=== PATIENT | male | born 1960 | race Caucasian/White ===

== ENCOUNTER 2018-03-14 08:51 | Outpatient (REF) | payer OTHER, SELFPAY ==
[2018-03-14 22:41] LABS: Anion Gap 6.1 mmol/L (3-11); BUN 17 mg/dL (7-18); CO2 27.9 mmol/L (21.0-32.0); CREATININE 0.96 mg/dL (0.70-1.30); Calcium 8.2 mg/dL (8.5-10.1); Chloride 105 mmol/L (98-107); Cholesterol 134 mg/dL (50-200); Glucose 106 mg/dL (70-100); HDL Cholesterol 66 mg/dL (40-60); LDL CHOLESTEROL 65 mg/dL (<100); Potassium 4.2 mmol/L (3.5-5.1); Sodium 139 mmol/L (136-145); Triglyceride 41 mg/dL (30-150)
[2018-03-16 10:41] LABS: PSA, Screening 2.6 ng/ml (0-3.5)
== END 2018-03-14 08:52 ==
LOC: NCHCN 08:51
PROVIDERS: PCP Urology; Visit Provider Family Medicine
DX: Z00.00 Encounter for general adult medical examination without abnormal findings (principal); Z13.228 Encounter for screening for other metabolic disorders; Z13.220 Encounter for screening for lipoid disorders; Z12.5 Encounter for screening for malignant neoplasm of prostate
CPT/HCPCS: 80048; 80061; 83721; 84153

== ENCOUNTER 2019-04-05 09:50 | Outpatient (REF) | payer OTHER, SELFPAY ==
[2019-04-05 21:27] LABS: Hemoglobin A1C 5.6 % (4.5-6.2)
[2019-04-05 21:35] LABS: ALT 28 U/L (16-63); AST 11 U/L (15-37); Albumin 4.6 g/dL (3.4-5.0); Alkaline Phosphatase 44 U/L (46-116); Anion Gap 10.1 mmol/L (3-11); BUN 14 mg/dL (7-18); Bilirubin, Total 1.2 mg/dL (0.2-1.0); CO2 27.9 mmol/L (21.0-32.0); CREATININE 0.74 mg/dL (0.70-1.30); Calcium 8.9 mg/dL (8.5-10.1); Calculated LDL 68 mg/dL; Chloride 104 mmol/L (98-107); Cholesterol 147 mg/dL (50-200); Glucose 107 mg/dL (70-100); HDL Cholesterol 73 mg/dL (40-60); Potassium 4.2 mmol/L (3.5-5.1); Sodium 142 mmol/L (136-145); Triglyceride 32 mg/dL (30-150)
== END 2019-04-05 10:10 ==
LOC: NCHCN 09:50
PROVIDERS: PCP Urology; Visit Provider Family Medicine
DX: Z00.00 Encounter for general adult medical examination without abnormal findings (principal); R73.01 Impaired fasting glucose; F10.19 Alcohol abuse with unspecified alcohol-induced disorder; Z12.5 Encounter for screening for malignant neoplasm of prostate
CPT/HCPCS: 80053; 80061; 84153; 83036

== ENCOUNTER 2019-04-26 08:58 | Outpatient (REF) | payer OTHER, SELFPAY ==
[2019-04-29 11:34] LABS: PSA, Screening 3.7 ng/ml (0-3.5)
== END 2019-04-26 09:18 ==
LOC: NCHCN 08:58
PROVIDERS: PCP Urology; Visit Provider Family Medicine
DX: R97.20 Elevated prostate specific antigen [PSA] (principal); Z12.5 Encounter for screening for malignant neoplasm of prostate
CPT/HCPCS: 84153

== ENCOUNTER 2020-04-10 09:29 | Outpatient (REF) | payer OTHER, SELFPAY ==
[2020-04-10 22:01] LABS: ALT 26 U/L (16-63); AST 13 U/L (15-37); Albumin 4.1 g/dL (3.4-5.0); Alkaline Phosphatase 34 U/L (46-116); BUN 16 mg/dL (7-18); Bilirubin, Total 0.9 mg/dL (0.2-1.0); CREATININE 0.85 mg/dL (0.70-1.30); Calcium 8.7 mg/dL (8.5-10.1); Chloride 104 mmol/L (98-107); Glucose 99 mg/dL (74-106); Potassium 4.1 mmol/L (3.5-5.1); Sodium 140 mmol/L (136-145); Total Protein 6.4 g/dL (6.4-8.2)
[2020-04-10 22:11] LABS: Hemoglobin A1C 5.4 % (<5.7)
[2020-04-10 22:16] LABS: Calculated LDL 75 mg/dL (<100); Cholesterol 149 mg/dL (<200); HDL Cholesterol 69 mg/dL (40-60); Triglyceride 27 mg/dL (<150)
== END 2020-04-10 09:49 ==
LOC: NCHCN 09:29
PROVIDERS: PCP Urology; Visit Provider Family Medicine
DX: Z00.00 Encounter for general adult medical examination without abnormal findings (principal); R73.03 Prediabetes; R17 Unspecified jaundice
CPT/HCPCS: 80053; 80061; 83036

== ENCOUNTER 2021-04-16 15:09 | Outpatient (REF) | payer OTHER, SELFPAY ==
[2021-04-16 18:01] LABS: Hemoglobin A1C 5.5 % (<5.7)
[2021-04-16 18:02] LABS: Anion Gap 7.2 mmol/L (3-11); BUN 16 mg/dL (7-18); CO2 28.8 mmol/L (21.0-32.0); CREATININE 0.8 mg/dL (0.70-1.30); Calcium 8.7 mg/dL (8.5-10.1); Calculated LDL 76 mg/dL (<100); Chloride 105 mmol/L (98-107); Cholesterol 155 mg/dL (<200); Glucose 96 mg/dL (74-106); HDL Cholesterol 71 mg/dL (40-60); Potassium 4.4 mmol/L (3.5-5.1); Sodium 141 mmol/L (136-145); Triglyceride 44 mg/dL (<150)
== END 2021-04-16 15:10 | disposition home or self-care (01) ==
LOC: NCHCN 15:09
PROVIDERS: PCP Urology; Visit Provider Family Medicine
DX: Z00.00 Encounter for general adult medical examination without abnormal findings (principal); R73.03 Prediabetes
CPT/HCPCS: 80048; 80061; 83036

== ENCOUNTER 2022-04-22 16:49 | Outpatient (REF) | payer BC, SELFPAY ==
[2022-04-22 20:11] LABS: ALT 33 U/L (16-63); AST 22 U/L (15-37); Albumin 4.4 g/dL (3.4-5.0); Alkaline Phosphatase 40 U/L (46-116); Anion Gap 9.2 mmol/L (3-11); BUN 17 mg/dL (7-18); CO2 26.8 mmol/L (21.0-32.0); CREATININE 0.9 mg/dL (0.70-1.30); Calcium 8.5 mg/dL (8.5-10.1); Calculated LDL 83 mg/dL (<100); Chloride 104 mmol/L (98-107); Cholesterol 164 mg/dL (<200); Estimated GFR 98.38 (mL/min/1.73m2); Glucose 81 mg/dL (74-106); HDL Cholesterol 75 mg/dL (40-60); Potassium 3.8 mmol/L (3.5-5.1); Sodium 140 mmol/L (136-145); Total Protein 7.1 g/dL (6.4-8.2); Triglyceride 32 mg/dL (<150)
== END 2022-04-22 16:50 | disposition home or self-care (01) ==
LOC: NCHCN 16:49
PROVIDERS: PCP Urology; Visit Provider Family Medicine
DX: R17 Unspecified jaundice (principal); Z72.89 Other problems related to lifestyle
CPT/HCPCS: 80053; 80061

== ENCOUNTER 2023-04-24 15:00 | Outpatient (REF) | payer BC, SELFPAY ==
[2023-04-24 21:20] LABS: ALT 22 U/L (16-63); AST 23 U/L (15-37); Albumin 4.2 g/dL (3.4-5.0); Alkaline Phosphatase 49 U/L (46-116); Anion Gap 6.4 mmol/L (3-11); BUN 17 mg/dL (7-18); Bilirubin, Total 0.6 mg/dL (0.2-1.0); CO2 28.6 mmol/L (21.0-32.0); CREATININE 0.8 mg/dL (0.70-1.30); Chloride 102 mmol/L (98-107); Estimated GFR 101.32 (mL/min/1.73m2); Glucose 126 mg/dL (74-106); Potassium 3.9 mmol/L (3.5-5.1); Sodium 137 mmol/L (136-145); Total Protein 7.1 g/dL (6.4-8.2)
[2023-04-24 21:27] LABS: Hemoglobin A1C 5.7 % (<5.7)
[2023-04-24 22:07] LABS: Vitamin D 25 Total 17.7 ng/mL (30-100)
== END 2023-04-24 15:01 | disposition home or self-care (01) ==
LOC: NCHCN 15:00
PROVIDERS: PCP Urology; Visit Provider Family Medicine
DX: Z00.00 Encounter for general adult medical examination without abnormal findings; Z72.89 Other problems related to lifestyle
CPT/HCPCS: 80053; 82306; 83036

== ENCOUNTER 2023-07-03 11:34 | Outpatient (REF) | payer BC, SELFPAY ==
[2023-07-03 15:24] LABS: Vitamin D 25 Total 28.7 ng/mL (30-100)
== END 2023-07-03 11:35 | disposition home or self-care (01) ==
LOC: NCHCN 11:34
PROVIDERS: PCP Urology; Visit Provider Family Medicine
DX: E55.9 Vitamin D deficiency, unspecified (principal)
CPT/HCPCS: 82306

== ENCOUNTER 2023-10-13 15:06 | Outpatient (REF) | payer BC, SELFPAY ==
[2023-10-13 15:37] LABS: Vitamin D 25 Total 34.6 ng/mL (30-100)
== END 2023-10-13 15:07 | disposition home or self-care (01) ==
LOC: NCHCN 15:06
PROVIDERS: PCP Urology; Visit Provider Family Medicine
DX: E55.9 Vitamin D deficiency, unspecified (principal)
CPT/HCPCS: 82306

== ENCOUNTER 2024-04-26 15:46 | Outpatient (REF) | payer BC, SELFPAY ==
[2024-04-26 16:10] LABS: ALT 23 U/L (16-63); AST 20 U/L (15-37); Albumin 4.2 g/dL (3.4-5.0); Alkaline Phosphatase 55 U/L (46-116); Anion Gap 9.6 mmol/L (3-11); BUN 16 mg/dL (7-18); Bilirubin, Total 1.06 mg/dL (0.2-1.0); CO2 27.4 mmol/L (21.0-32.0); CREATININE 0.9 mg/dL (0.70-1.30); Calcium 8.8 mg/dL (8.5-10.1); Calculated LDL 64 mg/dL (<100); Chloride 108 mmol/L (98-107); Cholesterol 141 mg/dL (<200); Estimated GFR 96.57 (mL/min/1.73m2); Glucose 87 mg/dL (74-106); HDL Cholesterol 72 mg/dL (40-60); Potassium 3.9 mmol/L (3.5-5.1); Sodium 145 mmol/L (136-145); Triglyceride 29 mg/dL (<150)
[2024-04-26 16:35] LABS: Hemoglobin A1C 5.4 % (<5.7)
[2024-05-02 09:51] LABS: PSA, Diagnostic 5.5 ng/ml (0-4.5)
== END 2024-04-26 15:47 | disposition home or self-care (01) ==
LOC: NCHCN 15:46
PROVIDERS: PCP Urology; Visit Provider Family Medicine
DX: C61 Malignant neoplasm of prostate (principal); R73.03 Prediabetes; Z13.220 Encounter for screening for lipoid disorders
CPT/HCPCS: 80053; 80061; 84153; 83036

== ENCOUNTER 2024-08-06 13:15 | Outpatient (REF) | payer BC, SELFPAY ==
[2024-08-06 21:55] LABS: Abs Immature Grans 0.01 10^3/uL (0.0-0.06); Absolute Basophil Count 0.03 10^3/uL (0.0-0.2); Absolute Eosinophil Count 0.09 10^3/uL (0.0-0.7); Absolute Lymphocyte Count 0.85 10^3/uL (1.2-3.4); Absolute Monocyte Count 0.39 10^3/uL (0.1-0.8); Absolute Neutrophil Count 3.58 10^3/uL (1.2-6.7); Basophils % 0.6 %; Eosinophils % 1.8 %; HCT 43.3 % (40.0-50.0); HGB 14.6 g/dL (13.5-17.5); Immature Grans % 0.2 %; Lymphocytes % 17.2 %; MCH 30.4 pg (27.0-33.0); MCHC 33.7 % (32.0-36.0); MCV 90 fL (80-95); MPV 10.2 fL (8.0-11.0); Monocytes % 7.9 %; Neutrophils % 72.3 %; Platelet Count 222 10^3/uL (130-400); RBC 4.81 10^6/uL (4.36-5.78); RDW 12.8 % (11.8-14.1); RDW-SD 42.5 fL; WBC 4.95 10^3/uL (4.4-10.8)
[2024-08-06 22:22] LABS: ALT 23 U/L (16-63); AST 19 U/L (15-37); Albumin 4.1 g/dL (3.4-5.0); Alkaline Phosphatase 61 U/L (46-116); Anion Gap 6.3 mmol/L (3-11); BUN 18 mg/dL (7-18); Bilirubin, Total 0.72 mg/dL (0.2-1.0); CO2 28.7 mmol/L (21.0-32.0); CREATININE 0.9 mg/dL (0.70-1.30); Chloride 106 mmol/L (98-107); Estimated GFR 96.57 (mL/min/1.73m2); Glucose 103 mg/dL (74-106); Potassium 4.4 mmol/L (3.5-5.1); Sodium 141 mmol/L (136-145)
[2024-08-06 22:44] LABS: Lipase 32 U/L (<78)
== END 2024-08-06 13:16 | disposition home or self-care (01) ==
LOC: NCHCN 13:15
PROVIDERS: PCP Urology; Visit Provider Family Medicine
DX: R10.11 Right upper quadrant pain (principal)
CPT/HCPCS: 80053; 83690; 85025

== ENCOUNTER 2025-01-16 21:40 | Outpatient (REF) | payer BC, SELFPAY ==
[2025-01-17 16:36] LABS: PSA, Diagnostic 4.9 ng/mL (<=4.5)
== END 2025-01-16 21:41 | disposition home or self-care (01) ==
LOC: LBN 21:40
PROVIDERS: PCP Urology; Visit Provider Urology
DX: C61 Malignant neoplasm of prostate (principal)
CPT/HCPCS: 84153

== ENCOUNTER 2025-05-02 09:44 | Outpatient (REF) | payer BC, SELFPAY ==
[2025-05-02 15:11] LABS: Hemoglobin A1C 5.5 % (<5.7)
[2025-05-02 15:31] LABS: ALT 35 U/L (16-63); AST 24 U/L (15-37); Albumin 3.8 g/dL (3.4-5.0); Alkaline Phosphatase 47 U/L (46-116); Anion Gap 8.2 mmol/L (3-11); BUN 13 mg/dL (7-18); Bilirubin, Total 0.7 mg/dL (0.2-1.0); CO2 27.8 mmol/L (21.0-32.0); Calcium 8.5 mg/dL (8.5-10.1); Chloride 103 mmol/L (98-107); Cholesterol 143 mg/dL (<200); Estimated GFR 99.44 (mL/min/1.73m2); Glucose 87 mg/dL (74-106); HDL Cholesterol 60 mg/dL (>or=40); Potassium 3.6 mmol/L (3.5-5.1); Sodium 139 mmol/L (136-145); Total Protein 6.5 g/dL (6.4-8.2); Triglyceride <25 mg/dL (<150)
[2025-05-02 15:44] LABS: LDL CHOLESTEROL 80 mg/dL (<100)
== END 2025-05-02 09:45 | disposition home or self-care (01) ==
LOC: NCHCN 09:44
PROVIDERS: PCP Urology; Visit Provider Family Medicine
DX: R73.03 Prediabetes (principal); Z13.220 Encounter for screening for lipoid disorders
CPT/HCPCS: 80053; 80061; 83721; 83036